=== PATIENT | female | born 1980 | race Caucasian/White ===

== ENCOUNTER 2017-07-09 09:16 | Emergency (ER) | payer SELFPAY ==
[~2017-07-09] VITALS: Ht 162.6 cm; Wt 73.0 kg
[2017-07-09 14:02] LABS: BASOPHILS % 0.6 % (0.0-2.0); EOSINOPHILS % 2.2 % (0.0-5.0); HEMATOCRIT. 40.4 % (36.0-48.0); HEMOGLOBIN. 13.4 g/dL (12.0-16.0); LYMPHOCYTES % 22.1 % (20.0-50.0); MEAN CORPUSCULAR HEMOGLOBIN 26.3 pg (28.0-32.0); MEAN CORPUSCULAR VOLUME 79.5 fL (81.0-99.0); MEAN PLATELET VOLUME 7.8 fl (7.4-10.4); MONOCYTES % 7.4 % (2.0-8.0); NEUTROPHILS % 67.7 % (40.0-76.0); PLATELET 347 x1000/uL (130-400); RED BLOOD CELL COUNT 5.09 mill/uL (4.2-5.4); RED CELL DISTRIBUTION WIDTH 14.8 % (11.6-14.6)
[2017-07-09 14:06] LABS: CHLORIDE 102 mEq/L (98-107)
[2017-07-09 14:07] LABS: PROTHROMBIN TIME 10.2 sec (9.4-11.6)
[2017-07-09 14:16] LABS: B-HCG QUANTITATIVE 12 mIU/mL (<3)
[2017-07-09 15:58] VITALS: BP 122/69
== END 2017-07-09 16:14 | disposition home or self-care (01) ==
LOC: ER 09:16
DX: O34.80 Maternal care for other abnormalities of pelvic organs, unspecified trimester (principal); Z3A.00 Weeks of gestation of pregnancy not specified
CPT/HCPCS: 36415; 76830; 76856; 80053; 81025; 84702; 85025; 85610; 86850; 86900; 99285

== ENCOUNTER 2017-07-12 13:59 | Emergency (ER) | payer SELFPAY ==
[~2017-07-12] VITALS: Ht 152.4 cm; Wt 89.0 kg
[2017-07-12 18:25] LABS: BASOPHILS % 1.2 % (0.0-2.0); EOSINOPHILS % 1.8 % (0.0-5.0); HEMATOCRIT. 39.5 % (36.0-48.0); HEMOGLOBIN. 13.3 g/dL (12.0-16.0); MEAN CORPUSCULAR HEMOGLOBIN 26.9 pg (28.0-32.0); MEAN CORPUSCULAR VOLUME 79.6 fL (81.0-99.0); MEAN PLATELET VOLUME 7.8 fl (7.4-10.4); MONOCYTES % 7.4 % (2.0-8.0); NEUTROPHILS % 61.6 % (40.0-76.0); PLATELET 370 x1000/uL (130-400); RED BLOOD CELL COUNT 4.95 mill/uL (4.2-5.4); RED CELL DISTRIBUTION WIDTH 14.8 % (11.6-14.6)
[2017-07-12 18:29] LABS: CHLORIDE 103 mEq/L (98-107)
[2017-07-12 18:40] LABS: B-HCG QUANTITATIVE 2 mIU/mL (<3)
[2017-07-12 18:42] LABS: CLARITY URINE CLOUDY (CLEAR); COLOR URINE YELLOW (YELLOW); KETONES URINE TRACE (NEGATIVE); LEUKOCYTE ESTERASE URINE 1+ (NEGATIVE); NITRITE URINE NEGATIVE (NEGATIVE); OCCULT BLOOD URINE 3+ (NEGATIVE); PROTEIN URINE NEGATIVE (NEGATIVE); SPECIFIC GRAVITY URINE 1.025 (1.005-1.030)
[2017-07-12] MEDS ORDERED: IBUPROFEN 600MG TABLET PO ONE (20:15)
[2017-07-12 20:53] VITALS: BP 129/74
== END 2017-07-12 20:53 | disposition home or self-care (01) ==
LOC: ER 15:06
DX: O20.0 Threatened abortion (principal); Z3A.01 Less than 8 weeks gestation of pregnancy
CPT/HCPCS: 36415; 76830; 76856; 80053; 81001; 81025; 84702; 85025; 99285